=== PATIENT | male | born 1960 | race Caucasian/White ===

== ENCOUNTER → 2019-04-09 10:30 | Outpatient (CLI) | payer OTHER, SELFPAY ==
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
== END ==
PROVIDERS: PCP Internal Medicine; Visit Provider Internal Medicine
DX: S22.42XA Multiple fractures of ribs, left side, initial encounter for closed fracture (principal); X58.XXXA Exposure to other specified factors, initial encounter
CPT/HCPCS: 71101